=== PATIENT | male | born 1980 | race Caucasian/White ===

== ENCOUNTER 2020-04-05 05:28 | Emergency (ER) | payer SELFPAY ==
[~2020-04-05 05:28] MED LIST: CLEOCIN HCL300 MG PO; KEFLEX CAP 500500 MG PO
== END 2020-04-05 08:41 | disposition home or self-care (01) ==
LOC: ER1 05:28
DX: S20.212A Contusion of left front wall of thorax, initial encounter (principal); S50.12XA Contusion of left forearm, initial encounter; S60.212A Contusion of left wrist, initial encounter; I10 Essential (primary) hypertension; E11.9 Type 2 diabetes mellitus without complications; W00.2XXA Other fall from one level to another due to ice and snow, initial encounter; Y92.410 Unspecified street and highway as the place of occurrence of the external cause
CPT/HCPCS: 71111; 73090; 73110; 99283

== ENCOUNTER 2021-11-01 12:46 | Emergency (ER) | payer OTHER ==
[~2021-11-01] VITALS: Ht 193 cm; Wt 172.8 kg
[2021-11-01 14:06] LABS: HEMOGLOBIN 14.6 gm/dl (14.0-17.5); RED BLOOD COUNT 5.01 M/UL (4.20-5.50); WHITE BLOOD COUNT 12.8 K/UL (4.5-11.0)
[2021-11-01 14:26] LABS: BUN/CREATININE RATIO 10 (0-10)
[2021-11-01] MEDS ORDERED: CEPHALEXIN500 M1 PO (16:35)
[2021-11-01] MEDS ORDERED: NAPROSYN500 MG PO (16:35)
== END 2021-11-01 21:32 | disposition home or self-care (01) ==
LOC: ER1 12:46
PROVIDERS: Emergency Medicine
DX: L02.214 Cutaneous abscess of groin (principal); I10 Essential (primary) hypertension; E11.9 Type 2 diabetes mellitus without complications
CPT/HCPCS: 10060; 80053; 85025; 86140; 96374; 96375; 96376; 99283; J3370; J7070